=== PATIENT | male | born 2000 | race Caucasian/White ===

== ENCOUNTER 2021-11-20 09:41 | Emergency (ER) | payer SELFPAY ==
[2021-11-20 09:42] VITALS: BP 107/52; PULSE 66; RESP 16; TEMP 36.6; O2SAT 99; BMI 17.8
--- NOTE | 2021-11-20 09:55 | CT_ITS ---
STUDY: CT ABDOMEN AND PELVIS WITHOUT CONTRAST REASON FOR EXAM: Male, 21 years old. Kidney Stone RADIATION DOSAGE (If Supplied By Facility): CTDIvol = ( 6.04 ) mGy, DLP = ( 291.44 ) mGycm TECHNIQUE: Transaxial images were obtained from the dome of the diaphragm to the symphysis pubis without oral contrast, and without intravenous contrast. Sagittal and coronal images were reconstructed. Individualized dose optimization techniques were used for this CT. COMPARISON: None. FINDINGS: The visualized lung bases are unremarkable. The visualized portions of the heart are within normal limits. Normal liver. Normal gallbladder and extrahepatic biliary system. Normal spleen. Normal pancreas. Normal bilateral adrenal glands. Multiple tiny nonobstructing right renal stones. No hydronephrosis, ureteral stone, ureteral dilatation. Normal left kidney. Normal visualized stomach. Normal small intestine. Normal colon. The appendix is visualized and appears normal. Normal abdominal aorta. Normal inferior vena cava. Normal retroperitoneum. Normal urinary bladder. Normal abdominal wall. Normal osseous structures. CT/Abdomen/Pelvis without Cont IMPRESSION: Multiple tiny (1 mm) nonobstructing right renal stones. Electronically Signed: Damien Hall MD at 10:38 EDT ,
--- NOTE | 2021-11-20 09:56 | EX.ED.GUMALE ---
HPI History of Present Illness Chief Complaint: Flank Pain Informant: patient Narrative Narrative: Intermittent right flank pain for the past 8 months. He states seeing the ED initially then return 4 months ago at [facility]. Reported diagnosed with lumbar strain. States placed on medicines. Denies any blood work or images performed there. He states that 2 weeks afterwards he thinks he passed a small stone. He has been dealing with on and off pain since then. He states he is not insured therefore was unable to follow-up as an outpatient. Today pain increased while at work feels like goes into his testicles. Had nausea earlier that subsided. No fevers. Urine is darker in color. Denies dysuria or frequency. Mother with history of kidney stones. He has not been officially diagnosed with a kidney stone. Denies past medical history. Allergies to shellfish. Prior similar symptoms: Yes PFSH PFSH Medical History MRSA (methicillin resistant staph aureus) culture positive non serious head injury Home Medications ibuprofen 600 mg tablet 600 mg PO 4X/DAY PRN Pain Or Fever #20 tabs 11/20/21 [Rx Last Taken Unknown] Allergy/AdvReac Type Severity Reaction Status Date / Time shellfish derived Allergy Intermediate Vomiting Verified 11/20/21 09:44 Family History Other Asthma Heart disease Surgical History History of tonsillectomy Social History Smoking Status: Never smoker ROS ROS ED Constitutional Constitutional ED: Denies chills, fever(s) or sweats Eyes Eyes: Denies change in vision ENT ENT ED: Denies dysphagia or sore throat Cardiovascular Cardiovascular: Denies chest pain, leg edema, palpitations or racing heartbeat Respiratory/Chest Respiratory/Chest: Denies cough, dyspnea or dyspnea on exertion Gastrointestinal Gastrointestinal: Denies abdominal pain, diarrhea, nausea or vomiting Genitourinary Genitourinary ED: Denies dysuria, hematuria or urinary frequency Musculoskeletal Musculoskeletal: Reports back pain; Denies extremity pain or neck pain Integumentary Denies rash or wounds Neurologic Neurologic: Denies headache(s), paresthesias or weakness EXAM Physical Exam Const Vital Signs: 11/20/21 09:42 Temperature 98 F Temperature Source Temporal Pulse Rate 66 Respiratory Rate 16 Blood Pressure 107/52 L Blood Pressure Mean 70 Pulse Ox 99 Oxygen Delivery Method Room Air Positive well nourished and well developed General Appearance ED: well developed and NAD HEENT Reports moist mucous membranes normocephalic and atraumatic Eyes PERRL, EOMs intact bilaterally and conjunctivae normal General Eye ED: Yes normal appearance of both eyes Neck no lymphadenopathy and supple General: Negative for tenderness Chest Wall Chest: Negative for tenderness Resp normal respiratory effort and normal air movement Effort and Inspection: symmetric chest movement; Negative for respiratory distress Cardio regular rate, regular rhythm and no murmurs Peripheral Pulses: pulses 2+ throughout GI normal to inspection, nondistended, normoactive bowel sounds and non-tender Palpation: Negative for guarding or rebound tenderness present Narrative: No rash in flank regions. Bladder / Kidney Exam: No CVA tenderness Back/Spine no CVA tenderness and no thoracic nor lumbar tenderness Extremity normal to inspection General Extremety ED: Negative for edema or tenderness General Extremity: Negative for edema Neuro oriented x3 and no sensory deficits noted Sensorium / Orientation: awake and alert Skin no rashes or lesions noted and no wounds MDM MDM MDM Narrative Medical decision making narrative: Patient nontoxic he has been having right flank symptoms reporting passing a stone 4 months ago. He states no imaging was performed. CT scan obtained in the ED notes nephrolithiasis multiple small ones without obstructive uropathy. Urine did note blood without infection labs are stable was treated Toradol with improvement of symptoms. With history and hematuria findings he is given urology for outpatient follow-up continue NSAIDs at this time. All questions were answered. Lab Data Attestation: I reviewed the patient's lab results. Labs: Laboratory Results - last 24 hr 11/20/21 11/20/21 11/20/21 10:05 10:05 10:08 WBC 5.4 RBC 4.66 Hgb 14.3 Hct 43.0 MCV 92.3 MCH 30.7 MCHC 33.3 RDW Std Deviation 40.2 RDW Coeff of [place] 11.9 Plt Count 203 MPV 11.8 Immature Gran % (Auto) 0.200 Neut % (Auto) 45.9 L Lymph % (Auto) 43.3 H [place] % (Auto) 8.2 Eos % (Auto) 1.3 Baso % (Auto) 1.1 H Absolute Neuts (auto) 2.5 Absolute Lymphs (auto) 2.32 Nucleated RBC % 0 Sodium 140 Potassium 4.0 Chloride 108 H Carbon Dioxide 30.0 Anion Gap 2 L BUN 7 Creatinine 0.83 Estim Creat Clear Calc 122.96 Est GFR (MDRD) Af Amer 151 Est GFR (MDRD) Non-Af 125 BUN/Creatinine Ratio 8.4 L Glucose 95 Calcium 9.2 Urine Color Yellow Urine Clarity Cloudy Urine pH 8.0 Ur Specific [place] 1.015 Urine Protein 15 H Urine Glucose (UA) Normal Urine Ketones Negative Urine Occult Blood 25 H Urine Nitrite Negative Urine Bilirubin Negative Urine Urobilinogen Normal Ur Leukocyte Esterase Negative Urine RBC 0 SEEN Urine WBC 0 SEEN Ur Squamous Epith Cells 0 SEEN Amorphous Sediment 2+ Urine Bacteria 0 SEEN Urine Mucus 0 SEEN Radiography Diagnostic Testing: Clinical Impression(s) from Imaging Studies Abdomen/Pelvis CT 11/20/21 09:55 IMPRESSION: Multiple tiny (1 mm) nonobstructing right renal stones. Electronically Signed: Damien Hall MD at 10:38 EDT , Discharge Plan Triage Chief Complaint: Flank Pain ED Provider: Cornell Moreno Dx/Rx/DC Orders Clinical Impression: Right flank pain, Nephrolithiasis, Hematuria Instructions: ED Hematuria, ED Kidney Stone, Passed Prescriptions: New ibuprofen 600 mg tablet 600 mg PO 4X/DAY PRN (Reason: Pain Or Fever) Qty: 20 0RF Primary Care Provider: Care Physician,No Primary Referrals: Luis Guzmán MD [Med Staff - Active Staff] - 1-2 Weeks [facility] Doctor,Out of [Non-Staff] - Activity Restrictions/Additional Instructions: Multiple small stones in the right kidney no obstructive uropathy. Blood in the urine. Follow-up with urology as an outpatient. Disposition Disposition: Home, Self Care Discharge Date/Time: 11/20/21 11:32
[2021-11-20 10:12] LABS: Absolute Lymphocyte Count 2.32 X10^3/uL (0.83-4.51); Absolute Neutrophil Count 2.5 X10^3/uL (2.0-7.7); Basophil# 0.06 X10^3/uL; Basophil% 1.1 % (0-1); Eosinophil# 0.07 X10^3/uL; Eosinophils% 1.3 % (0-5); Hemoglobin 14.3 g/dL (13.0-16.5); Lymphocyte # 2.32 X10^3/ul (0.83-4.51); Lymphocyte % 43.3 % (19-41); Mean Corp Hgb Conc 33.3 g/dL (32-36); Mean Corpuscular Hgb 30.7 pg (27.0-32.0); Mean Corpuscular Volume 92.3 fL (80-94); Mean Platelet Vol. 11.8 fl (6.2-12.0); Monocyte# 0.44 X10^3/uL; Monocyte% 8.2 % (0-10); NRBC Flagged by Analyzer 0 % (0-5); Neutrophil # 2.46 X10^3/uL (2.7-7.7); Neutrophil % 45.9 % (47-70); Platelet Count 203 K/mm3 (150-450); RBC Distribution Width CV 11.9 % (11.6-14.6); RBC Distribution Width SD 40.2 fl (35.1-43.9); Red Blood Count 4.66 M/mm3 (4.6-6.2); White Blood Count 5.4 K/mm3 (4.4-11.0)
[2021-11-20] MEDS: Ketorolac 15 MG/ML Vial IV (10:12)
[2021-11-20 10:16] LABS: Bacteria 0 SEEN /hpf (None Seen); Mucous, Urine 0 SEEN /hpf (<or=2+); Red Blood Cells-Urine 0 SEEN /hpf (0-5); Squamous Epithelial Cells - UA 0 SEEN /hpf (0-5); White Blood Cells 0 SEEN /hpf (0-5)
[2021-11-20 10:24] LABS: Color, Urine Yellow (Yellow); Glucose, Dipstick Normal (Normal); Ketone-Dipstick Negative (Negative); Leukocyte Esterase-Dipstick Negative /ul (Negative); Nitrite-Dipstick Negative (Negative); Occult Blood-Urine 25 /ul (Negative); Protein-Dipstick 15 mg/dl (Negative); Specific Gravity, Urine 1.015 (1.002-1.030); Urine Bilirubin Dipstick Negative (Negative); Urine Clarity Cloudy (Clear); Urine Urobilinogen Normal (Normal)
[2021-11-20 10:24] LABS: Anion Gap 2 (5-15); BUN 7 mg/dL (7-18); BUN/Creat Ratio 8.4 RATIO (10-20); Calcium,Total 9.2 mg/dL (8.5-10.1); Chloride 108 mmol/L (98-107); Creatinine, Serum 0.83 mg/dL (0.70-1.30); EST Glomerular Filtration Rate 125 mL/min (>60); Est Glom Filt Rate - Afr Amer 151 mL/min (>60); Estimated Creatinine Clearance 122.96 ml/min; Glucose 95 mg/dL (74-106); Sodium Level 140 mmol/L (136-145)
[2021-11-20 10:31] LABS: Amorphous Sediment 2+
== END 2021-11-20 11:32 | disposition home or self-care (01) ==
PROVIDERS: Emergency Provider Emergency Medicine; Visit Provider Emergency Medicine
DX: N20.0 Calculus of kidney (principal); Z86.14 Personal history of Methicillin resistant Staphylococcus aureus infection
CPT/HCPCS: 74176; 80048; 81001; 85025; 96374; 99283; A4216